=== PATIENT | female | born 1955 | race Caucasian/White ===

== ENCOUNTER 2018-04-23 17:48 | Emergency (ER) | payer OTHER ==
[2018-04-23] MEDS ORDERED: SODIUM CHLORIDE 0.9% 1,000 ML IV STA (18:06)
[2018-04-23] MEDS ORDERED: ONDANSETRON 4 MG/2 ML VIAL IVP STA (18:06)
[2018-04-23] MEDS ORDERED: KETOROLAC 30 MG/ML 1 ML VIAL IVP STA (18:06)
--- NOTE | 2018-04-23 18:18 | ED ---
Abdominal Pain HPI - General Chief Complaint: Abdominal Pain Stated Complaint: blood in urine Time Seen by Provider: 04/23/18 17:59 Source: patient Mode of arrival: ambulatory Limitations: no limitations - History of Present Illness Initial Comments: 62-year-old female patient presents to the emergency department today for evaluation of right flank pain, generalized abdominal pain, and hematuria. Patient states that approximately 10 days ago she started to notice bright red blood in her urine. States that she did follow up with her primary care physician and was informed that she had a UTI with hematuria was given a prescription for Cipro. Patient states that she has taken 9 days worth of the Cipro but her symptoms seem to be worsening. Patient states that she has no appetite, the pain in her flank is worsening, and her urine is becoming darker. States that the pain in her flank is a dull ache. She denies any fevers or chills with this. States that she just feels generally unwell and sick. She denies any constipation or diarrhea. Denies any history of similar symptoms. Patient states that she has had a kidney stone in the past however it was a long time ago and shows remember what it felt like. Patient denies any recent rash, shortness breath, cough, congestion, chest pain, numbness, tingling, dizziness, weakness, headache, visual changes, or any other complaints. - Related Data Home Medications Medication Instructions Recorded Confirmed Atorvastatin [Lipitor] 40 mg PO HS 04/23/18 04/23/18 Citalopram Hydrobromide [CeleXA] 40 mg PO DAILY 04/23/18 04/23/18 Clopidogrel [Plavix] 75 mg PO DAILY 04/23/18 04/23/18 DULoxetine HCL [Cymbalta] 30 mg PO BID 04/23/18 04/23/18 Losartan Potassium [Cozaar] 100 mg PO HS 04/23/18 04/23/18 Nadolol [Corgard] 20 mg PO DAILY 04/23/18 04/23/18 Omeprazole 40 mg PO DAILY 04/23/18 04/23/18 Ranitidine HCl [Zantac] 150 mg PO BID 04/23/18 04/23/18 amLODIPine [Norvasc] 5 mg PO DAILY 04/23/18 04/23/18 traZODone HCL [Desyrel] 200 mg PO HS 04/23/18 04/23/18 Previous Rx's Medication Instructions Recorded Ibuprofen [Motrin] 600 mg PO Q8HR PRN #30 tab 04/23/18 Tamsulosin HCl [Flomax] 0.4 mg PO DAILY #7 cap 04/23/18 Allergies Allergy/AdvReac Type Severity Reaction Status Date / Time prochlorperazine AdvReac Dyspnea Verified 04/23/18 18:17 [From Compazine] Review of Systems ROS Statement: Those systems with pertinent positive or pertinent negative responses have been documented in the HPI. ROS Other: All systems not noted in ROS Statement are negative. Past Medical History Past Medical History: CVA/TIA, Fibromyalgia, Hyperlipidemia, Hypertension Additional Past Medical History / Comment(s): Chronic pain History of Any Multi-Drug Resistant Organisms: None Reported Past Surgical History: Adenoidectomy, Appendectomy, Breast Surgery, Cholecystectomy, Hysterectomy, Orthopedic Surgery, Tonsillectomy, Tubal Ligation Past Psychological History: No Psychological Hx Reported Smoking Status: Current every day smoker Past Alcohol Use History: Occasional Past Drug Use History: Marijuana General Exam Limitations: no limitations General appearance: alert, in no apparent distress, other (This is a well- developed, well-nourished adult female patient in no acute distress. Vital signs upon presentation are temperature 98.1F, pulse 96, respirations 18, blood pressure 122/88, pulse ox 98% on room air.) Eye exam: Present: normal appearance, PERRL, EOMI. Absent: scleral icterus, conjunctival injection, periorbital swelling ENT exam: Present: normal exam, normal oropharynx, mucous membranes moist Respiratory exam: Present: normal lung sounds bilaterally. Absent: respiratory distress, wheezes, rales, rhonchi, stridor Cardiovascular Exam: Present: regular rate, normal rhythm, normal heart sounds. Absent: systolic murmur, diastolic murmur, rubs, gallop, clicks GI/Abdominal exam: Present: soft, tenderness (Midepigastric, right upper quadrant tenderness. Left lower quadrant tenderness.), normal bowel sounds. Absent: distended, guarding, rebound, rigid, mass Back exam: Present: normal inspection, CVA tenderness (R). Absent: CVA tenderness (L) Neurological exam: Present: alert, oriented X3, CN II-XII intact Psychiatric exam: Present: normal affect, normal mood Skin exam: Present: warm, dry, intact, normal color. Absent: rash Course Vital Signs 04/23/18 04/23/18 17:54 18:54 Temperature 98.1 F Pulse Rate 96 88 Respiratory 18 16 Rate Blood Pressure 122/88 122/58 O2 Sat by Pulse 98 98 Oximetry Medical Decision Making - Medical Decision Making 62-year-old female patient presents to the emergency department today for evaluation of hematuria, right-sided abdominal pain, and flank pain. Physical examination did reveal some mild right lower quadrant abdominal tenderness and some right CVA tenderness. Labs reviewed, did reveal potassium of 2.8, greater than 182 red blood cells in the urine. CT of the abdomen and pelvis was obtained with contrast as patient's symptoms did not coincide with kidney stone. This scan did show did show a 3 mm calculus in the left proximal ureter without hydronephrosis or hydroureter. There is no findings to account for patient's pain in the right abdomen and flank. Did discuss findings and results with the patient. We did replace her potassium here with IV and by mouth. She'll be treated for kidney stone with Flomax and ibuprofen. She is instructed to follow-up with urologist for further evaluation of the stone and that hematuria. Return parameters were discussed in detail. She verbalizes understanding and agrees with this plan. - Lab Data Result diagrams: 04/23/18 18:10 04/23/18 18:10 Lab Results 04/23/18 04/23/18 04/23/18 Range/Units 18:10 18:10 18:10 WBC 6.8 (3.8-10.6) k/uL RBC 4.23 (3.80-5.40) m/uL Hgb 13.8 (11.4-16.0) gm/dL Hct 38.9 (34.0-46.0) % MCV 91.8 (80.0-100.0) fL MCH 32.5 (25.0-35.0) pg MCHC 35.4 (31.0-37.0) g/dL RDW 13.3 (11.5-15.5) % Plt Count 366 (150-450) k/uL Neutrophils % 55 % Lymphocytes % 34 % Monocytes % 6 % Eosinophils % 2 % Basophils % 1 % Neutrophils # 3.7 (1.3-7.7) k/uL Lymphocytes # 2.3 (1.0-4.8) k/uL Monocytes # 0.4 (0-1.0) k/uL Eosinophils # 0.2 (0-0.7) k/uL Basophils # 0.1 (0-0.2) k/uL PT (9.0-12.0) sec INR (<1.2) APTT (22.0-30.0) sec Sodium 143 (137-145) mmol/L Potassium 2.8 L* (3.5-5.1) mmol/L Chloride 103 (98-107) mmol/L Carbon Dioxide 29 (22-30) mmol/L Anion Gap 11 mmol/L BUN 12 (7-17) mg/dL Creatinine 0.80 (0.52-1.04) mg/dL Est GFR (CKD-EPI)AfAm >90 (>60 ml/min/1.73 sqM) Est GFR (CKD-EPI)NonAf 78 (>60 ml/min/1.73 sqM) Glucose 90 (74-99) mg/dL Plasma Lactic Acid Ken 0.6 L (0.7-2.0) mmol/L Calcium 9.2 (8.4-10.2) mg/dL Total Bilirubin 0.3 (0.2-1.3) mg/dL AST 19 (14-36) U/L ALT 31 (9-52) U/L Alkaline Phosphatase 72 (38-126) U/L Total Protein 6.1 L (6.3-8.2) g/dL Albumin 3.9 (3.5-5.0) g/dL Amylase 45 (30-110) U/L Lipase 66 (23-300) U/L Urine Color Urine Appearance (Clear) Urine pH (5.0-8.0) Ur Specific Henderson (1.001-1.035) Urine Protein (Negative) Urine Glucose (UA) (Negative) Urine Ketones (Negative) Urine Blood (Negative) Urine Nitrite (Negative) Urine Bilirubin (Negative) Urine Urobilinogen (<2.0) mg/dL Ur Leukocyte Esterase (Negative) Urine RBC (0-5) /hpf Urine WBC (0-5) /hpf Ur Squamous Epith Cells (0-4) /hpf Urine Mucus (None) /hpf 04/23/18 04/23/18 Range/Units 18:10 18:10 WBC (3.8-10.6) k/uL RBC (3.80-5.40) m/uL Hgb (11.4-16.0) gm/dL Hct (34.0-46.0) % MCV (80.0-100.0) fL MCH (25.0-35.0) pg MCHC (31.0-37.0) g/dL RDW (11.5-15.5) % Plt Count (150-450) k/uL Neutrophils % % Lymphocytes % % Monocytes % % Eosinophils % % Basophils % % Neutrophils # (1.3-7.7) k/uL Lymphocytes # (1.0-4.8) k/uL Monocytes # (0-1.0) k/uL Eosinophils # (0-0.7) k/uL Basophils # (0-0.2) k/uL PT 10.3 (9.0-12.0) sec INR 1.1 (<1.2) APTT 25.5 (22.0-30.0) sec Sodium (137-145) mmol/L Potassium (3.5-5.1) mmol/L Chloride (98-107) mmol/L Carbon Dioxide (22-30) mmol/L Anion Gap mmol/L BUN (7-17) mg/dL Creatinine (0.52-1.04) mg/dL Est GFR (CKD-EPI)AfAm (>60 ml/min/1.73 sqM) Est GFR (CKD-EPI)NonAf (>60 ml/min/1.73 sqM) Glucose (74-99) mg/dL Plasma Lactic Acid Ken (0.7-2.0) mmol/L Calcium (8.4-10.2) mg/dL Total Bilirubin (0.2-1.3) mg/dL AST (14-36) U/L ALT (9-52) U/L Alkaline Phosphatase (38-126) U/L Total Protein (6.3-8.2) g/dL Albumin (3.5-5.0) g/dL Amylase (30-110) U/L Lipase (23-300) U/L Urine Color Light Red Urine Appearance Cloudy H (Clear) Urine pH 6.0 (5.0-8.0) Ur Specific Henderson 1.016 (1.001-1.035) Urine Protein 1+ H (Negative) Urine Glucose (UA) Negative (Negative) Urine Ketones Trace H (Negative) Urine Blood Large H (Negative) Urine Nitrite Negative (Negative) Urine Bilirubin Negative (Negative) Urine Urobilinogen <2.0 (<2.0) mg/dL Ur Leukocyte Esterase Moderate H (Negative) Urine RBC >182 H (0-5) /hpf Urine WBC 36 H (0-5) /hpf Ur Squamous Epith Cells 1 (0-4) /hpf Urine Mucus Few H (None) /hpf - Radiology Data Radiology results: report reviewed, image reviewed CT of the abdomen and pelvis with contrast was obtained. Report was reviewed in its entirety. Impression by Dr. Keene shows low to intermediate density masses in the left kidney or probably cysts and should be confirmed by ultrasound. Small hiatal hernia. No sign of acute abdomen and pelvis. I do not see a cause for right-sided abdominal pain. There was an addendum made to noted 3 mm calculus in the left proximal ureter with no evidence of hydronephrosis or hydroureter. Disposition Clinical Impression: Kidney stone on left side, Abdominal pain, Hypokalemia Disposition: HOME SELF-CARE Condition: Good Instructions: Kidney Stones (ED), Hypokalemia (ED), Abdominal Pain (ED) Additional Instructions: Take medications as directed. Follow-up with your primary care physician for recheck and repeat lab testing specifically potassium. Up with urology for further evaluation of kidney stone, flank pain, and hematuria. Return here immediately for any new, worsening, or concerning symptoms. Prescriptions: Ibuprofen [Motrin] 600 mg PO Q8HR PRN #30 tab PRN Reason: Pain Tamsulosin HCl [Flomax] 0.4 mg PO DAILY #7 cap Is patient prescribed a controlled substance at d/c from ED?: No Referrals: None,Stated [Primary Care Provider] - 1-2 days Saul Peck MD [STAFF PHYSICIAN] - 1-2 days Time of Disposition: 20:36
[2018-04-23 18:42] LABS: Basophils # (A) 0.1 k/uL (0-0.2); Basophils % (A) 1 %; Eosinophils # (A) 0.2 k/uL (0-0.7); Eosinophils % (A) 2 %; HCT 38.9 % (34.0-46.0); HGB 13.8 gm/dL (11.4-16.0); Lymphocytes # (A) 2.3 k/uL (1.0-4.8); Lymphocytes % (A) 34 %; MCH 32.5 pg (25.0-35.0); MCHC 35.4 g/dL (31.0-37.0); MCV 91.8 fL (80.0-100.0); Mean Platelet Volume 6.5; Monocytes # (A) 0.4 k/uL (0-1.0); Monocytes % (A) 6 %; Neutrophils # (A) 3.7 k/uL (1.3-7.7); Neutrophils % (A) 55 %; Platelet Count 366 k/uL (150-450); RBC 4.23 m/uL (3.80-5.40); RDW 13.3 % (11.5-15.5); WBC 6.8 k/uL (3.8-10.6)
[2018-04-23 18:47] LABS: ALT 31 U/L (9-52); AST 19 U/L (14-36); Albumin 3.9 g/dL (3.5-5.0); Alkaline Phosphatase 72 U/L (38-126); Amylase 45 U/L (30-110); Anion Gap 11 mmol/L; Blood Urea Nitrogen 12 mg/dL (7-17); Calcium 9.2 mg/dL (8.4-10.2); Carbon Dioxide 29 mmol/L (22-30); Chloride 103 mmol/L (98-107); Glucose 90 mg/dL (74-99); INR 1.1 (<1.2); Lipase 66 U/L (23-300); Partial Thromboplastin Time 25.5 sec (22.0-30.0); Prothrombin Time 10.3 sec (9.0-12.0); Sodium 143 mmol/L (137-145); Total Bilirubin 0.3 mg/dL (0.2-1.3); Total Protein 6.1 g/dL (6.3-8.2)
[2018-04-23 18:51] LABS: Appearance,Urine Cloudy (Clear); Bilirubin,Urine Negative (Negative); Blood,Urine Large (Negative); Color,Urine Light Red; Glucose,Urine (UA) Negative (Negative); Ketones,Urine Trace (Negative); Leukocyte Esterase,Urine Moderate (Negative); Mucus,Urine Few /hpf; Nitrite,Urine Negative (Negative); Protein,Urine 1+ (Negative); RBC,Urine >182 /hpf (0-5); Specific Gravity,Urine 1.016 (1.001-1.035); Squamous Epithelial Cell,Urine 1 /hpf (0-4); Urobilinogen,Urine <2.0 mg/dL (<2.0); WBC,Urine 36 /hpf (0-5)
[2018-04-23 19:00] LABS: Potassium 2.8 mmol/L (3.5-5.1)
[2018-04-23] MEDS ORDERED: RX INFO: IV CONTRAST WAS GIVEN 1 EACH MISC MISCELLANE PRN (19:18)
[2018-04-23] MEDS ORDERED: POTASSIUM CHLORIDE ER 20 MEQ TAB.ER PO STA (19:19)
[2018-04-23] MEDS ORDERED: POTASSIUM CHLORIDE 10 MEQ in WATER FOR INJECTION 1 100ML.BAG IVPB STA (19:20)
--- NOTE | 2018-04-23 19:57 | CT ---
EXAMINATION TYPE: CT abdomen pelvis w con DATE OF EXAM: 04/23/2018 COMPARISON: NONE HISTORY: Right sided abdominal and flank pain x 1 1/[address] DLP: 400.3 mGycm Automated exposure control for dose reduction was used. TECHNIQUE: Helical acquisition of images was performed from the lung bases through the pelvis. CONTRAST: Performed without Oral Contrast and with IV Contrast, patient injected with 100 mL of Isovue 300. FINDINGS: Lung bases are clear of consolidation. There is mild subsegmental atelectasis at the left lung base. There are small hiatal hernia. There is no pericardial effusion. There is no pleural effusion. Liver spleen pancreas gallbladder appear normal. Bile ducts are not dilated. There is no adrenal mass. There is a low density rounded area on the upper pole left kidney. This karan sures 2 cm in diameter. There is a 1 cm cortical cyst on the posterior left kidney. There is no hydro nephrosis. Ureters are not dilated. There is no retroperitoneal adenopathy. Bladder distends smoothly . There is no pelvic mass. I see no intestinal wall thickening. There are no dilated loops. The lumba r vertebra have normal alignment. I see no bony destructive process. Appendix is not seen. There is n o sign of appendicitis. IMPRESSION: LOW TO INTERMEDIATE DENSITY MASSES ON THE LEFT KIDNEY ARE PROBABLY CYSTS AND SHOULD BE CONFIRMED BY U LTRASOUND. SMALL HIATAL HERNIA. NO SIGN OF ACUTE ABDOMEN AND PELVIS. I DO NOT SEE A CAUSE FOR RIGHT-S IDED PAIN.
[2018-04-23 21:47] VITALS: BP 129/78; PULSE 92; RESP 17; TEMP 97.6
== END 2018-04-23 22:04 | disposition home or self-care (01) ==
LOC: EC 17:48
DX: N20.2 Calculus of kidney with calculus of ureter (principal); E87.6 Hypokalemia; M79.7 Fibromyalgia; E78.5 Hyperlipidemia, unspecified; I10 Essential (primary) hypertension; F17.200 Nicotine dependence, unspecified, uncomplicated; Z86.73 Personal history of transient ischemic attack (TIA), and cerebral infarction without residual deficits; Z79.01 Long term (current) use of anticoagulants; Z79.899 Other long term (current) drug therapy; Z88.8 Allergy status to other drugs, medicaments and biological substances; Z90.49 Acquired absence of other specified parts of digestive tract
CPT/HCPCS: 36415; 80053; 82150; 83605; 83690; 85025; 85610; 85730; 81001; 87086; 74177; 99284; 96365; 96366; 96375 ×2; 96361; J2405; J1885; J3480; Q9967

== ENCOUNTER → 2018-05-13 | Outpatient (CLI) | payer SELFPAY ==
--- NOTE | 2018-05-13 15:41 | US ---
EXAMINATION TYPE: US kidneys/renal and bladder DATE OF EXAM: 05/13/2018 COMPARISON: CT 04/23/18 CLINICAL HISTORY: N28.1 KIDNEY CYSTS. EXAM MEASUREMENTS: Right Kidney: 10.3 x 4.9 x 4.5 cm Left Kidney: 9.9 x 4.6 x 4.0 cm Post Void Residual Volume: Bladder insufficiently full to evaluate. mL Right Kidney: wnl Left Kidney: Cysts: Lateral, Mid = 1.1 x 1.1 x 0.9 cm Lateral, Lower = 1.0 x 1.0 x 1.0 cm Bladder: Bladder insufficiently full to evaluate. Bilateral Jets seen: Bladder insufficiently full to evaluate. Normal Post Void Residual: Bladder insufficiently full to evaluate. There is no evidence for hydronephrosis at this point in time. No nephrolithiasis is seen. No reynaldo s are identified. The urinary bladder is anechoic. Bilateral ureteral jets are seen. IMPRESSION: The two previously identified left renal lesions appear cystic on ultrasound and measure up to 1.1 cm within the lateral mid pole of the left kidney. No hydronephrosis or nephrolithiasis.
== END | disposition home or self-care (01) ==
LOC: RADUSWWP 15:00
PROVIDERS: ATTEND Internal Medicine
DX: N28.1 Cyst of kidney, acquired (principal); N28.9 Disorder of kidney and ureter, unspecified
CPT/HCPCS: 76770

== ENCOUNTER → 2018-06-16 | Outpatient (CLI) | payer BC ==
--- NOTE | 2018-06-16 15:06 | CT ---
EXAMINATION TYPE: CT abdomen pelvis w con DATE OF EXAM: 06/16/2018 COMPARISON: 04/23/2018 HISTORY: 62-year-old female Generalized pain with nausea, hematoma of the left kidney TECHNIQUE: Contiguous axial scanning of the abdomen and pelvis following administration of 100 ml Iso conchita 300 IV contrast. Delayed images through the kidneys and coronal/sagittal reconstructions perform ed. CT DLP: 401.9 mGycm Automated exposure control for dose reduction was used. FINDINGS: Heart is upper limits of normal in size without pericardial effusion. There is a small hiatal hernia. Lung bases clear without pleural effusion. Small amount of focal fat along the anterior falciform ligament. No biliary ductal dilatation. Portal venous system is. Gallbladder, adrenal glands, right kidney, spleen, and pancreas show no gross abnormality. Retroaortic left renal vein. Heterogeneous hypodense lesion upper pole left kidney measures 2.4 cm versus 2.1 cm, previously. No s ignificant change in the soft tissue attenuation on delayed images suggesting a complicated cyst. A couple subcentimeter hypodensities mid and lower pole are [address] characterization and likely represent cysts. New in the interval is a large subcapsular hematoma distorting and compressing the left kidney, displ acing it anteriorly and superiorly. The subcapsular collection measures 9.1 cm wide and 9.9 cm cranio caudal. Mild surrounding fat stranding inferiorly probably some mild tracking blood products or edema . There is delayed excretion of contrast from the left kidney. Moderate atherosclerotic calcifications throughout the abdominal aorta and iliac arteries. No dilated small bowel, free fluid, or free air. There is circumferential wall thickening of the cecum and lower ascending colon probably due to nondi stention. No pericolonic inflammatory changes. Bladder urine distended. No abnormal fluid collection in the pelvis or pelvic lymphadenopathy. Uterus surgically absent. Neither ovary is clearly seen. Bones: Degenerative changes at the hips and right SI joint as well as the lower lumbar spine. IMPRESSION: 1. INTERVAL NEW LARGE SUBCAPSULAR FLUID COLLECTION/HEMATOMA INVOLVING THE LEFT KIDNEY MEASURING UP TO 9.9 CM COMPRESSING AND DISTORTING THE RENAL PARENCHYMA. THERE IS DELAYED EXCRETION OF CONTRAST FROM THE LEFT KIDNEY A RESULT. THE PATIENT SHOULD BE MONITORED FOR POTENTIAL PAGE KIDNEY. 2. CIRCUMFERENTIAL WALL THICKENING OF THE CECUM AND LOWER ASCENDING COLON PROBABLY DUE TO NONDISTENTI ON. CORRELATE FOR ANY SYMPTOMS OF COLITIS. 3. SOFT TISSUE DENSITY LESION UPPER POLE LEFT KIDNEY IS STABLE TO MINIMALLY LARGER AT 2.4 CM VERSUS 2 .1 CM, PREVIOUSLY. DESPITE THE SOFT TISSUE ATTENUATION, THERE IS NO CHANGE IN ENHANCEMENT ON THE DIETER YED KIDNEY IMAGES SUGGESTING A COMPLICATED CYST RATHER THAN A SOLID MASS.
== END | disposition home or self-care (01) ==
LOC: RADCTMAIN 11:53
PROVIDERS: ATTEND Internal Medicine
DX: S37.022A Major contusion of left kidney, initial encounter (principal); N28.9 Disorder of kidney and ureter, unspecified; K63.89 Other specified diseases of intestine
CPT/HCPCS: 74177; Q9967

== ENCOUNTER → 2018-07-20 | Outpatient (CLI) | payer BC ==
--- NOTE | 2018-07-20 16:37 | CT ---
EXAMINATION TYPE: CT abdomen wo/w con DATE OF EXAM: 07/20/2018 COMPARISON: 06/16/2018 INDICATION: Left side kidney neoplasm, loss of appetite and abdominal discomfort. DLP: 454.8 mGycm, Automated exposure control for dose reduction was used. CONTRAST: 100ml mL of Isovue M300. Study performed with Oral Contrast TECHNIQUE: Axial images were obtained from above the diaphragm to the pubic rami in the axial plane a t 5 mm thick sections. Reconstructed images are reviewed on the computer in the coronal plane. FINDINGS: Limited CT sections are obtained the lung bases. There is a punctate nodule within the periphery of the right lateral lung measuring 0.4 cm. Series 4 image 1. This may have been present on the comparis on study be smaller. Small hiatal hernia is present. CT ABDOMEN: Liver: Normal Spleen: Normal Pancreas: Normal Adrenal glands: The adrenal glands are normal. Gallbladder: Decompressed Kidneys: Previous lower density structure on the inferior lateral left kidney currently measures 6.2 cm which is less than a 9.1 cm previous. This has a Hounsfield unit measurement of 20. Punctate calcification without obstruction is in the mid left kidney measures 0.2 cm. However appears to be a complex cyst is at the superior pole left kidney may have internal septations and is estimat ed at 1.9 cm which is smaller than the comparison.. No hydronephrosis is present. Delayed images were obtained through the kidneys, which remain unrem arkable. Aorta: Vascular calcification is within the aorta. Inferior vena cava: Normal. CT PELVIS: Loops of bowel within the abdomen and pelvis are normal. There are loops of bowel which are incom pletely distended or lack oral contrast limiting their evaluation. Fecal debris appears to be in the hepatic flexure. IMPRESSIONS: 1. Diminished size of a previous inferior left renal suspected hematoma. 2. Punctate nonobstructing left mid pole renal stone. 3. Stable complex cyst superior posterior left kidney
== END | disposition home or self-care (01) ==
LOC: RADCTMAIN 14:28
PROVIDERS: ATTEND Urology
DX: N20.0 Calculus of kidney (principal); N28.1 Cyst of kidney, acquired
CPT/HCPCS: 74170; Q9967

== ENCOUNTER 2018-07-28 08:44 | Day surgery (SDC) | payer BC ==
[2018-07-28 09:17] VITALS: RESP 18; TEMP 97.1
[2018-07-28] MEDS ORDERED: DIAZEPAM 5 MG TAB PO STA (09:51)
[2018-07-28 10:40] LABS: Mean Platelet Volume 6.6; Platelet Count 448 k/uL (150-450)
[2018-07-28 10:45] LABS: INR 1.1 (<1.2); Prothrombin Time 10.3 sec (9.0-12.0)
[2018-07-28 12:23] VITALS: BP 94/62; PULSE 60
--- NOTE | 2018-07-28 14:03 | US ---
Perinephric fluid aspiration and core biopsy HISTORY: Perinephric hematoma Maximal barrier technique was utilized. Ultrasound was used to sterile technique. The skin overlying a suitable path to the abnormalities localized with ultrasound and the overlying skin prepped and vania ped. Lidocaine used for local anesthesia. A 17-gauge guide was advanced under ultrasound guidance int o the perinephric fluid and aspirated old blood was performed, approximately 20 cc. Core biopsy was p erformed with an 18-gauge needle and submitted formalin to pathology. Following the procedure hemosta sis achieved. No immediate complication. Patient remained in stable condition. IMPRESSION: Status post perinephric hematoma aspiration, ultrasound-guided core biopsy. This procedur e performed by the undersigned. Pathology is pending.
--- NOTE | 2018-07-28 14:06 | US ---
Core biopsy perinephric fluid collection CT dictated report ultrasound renal cyst aspiration same date
== END 2018-07-28 12:00 | disposition home or self-care (01) ==
LOC: RADPROMAIN 08:44
PROVIDERS: ATTEND Urology
DX: S37.012A Minor contusion of left kidney, initial encounter (principal)
CPT/HCPCS: 36415; 50200; 50390; 76942; 85049; 85610; 87070; 87205; 88173; 88305

== ENCOUNTER → 2018-11-03 | Outpatient (CLI) | payer BC ==
--- NOTE | 2018-11-03 15:25 | US ---
EXAMINATION TYPE: US kidneys/renal and bladder DATE OF EXAM: 11/03/2018 COMPARISON: CT 07/20/2018, ultrasound 07/28/2018 CLINICAL HISTORY: D41.02 uncertain behavior of left kidney. Hx of left renal lesion. Patient states it was full of blood and had it drained. Left side discomfort. EXAM MEASUREMENTS: Right Kidney: 9.2 x 4.5 x 4.0 cm Left Kidney: 7.8 x 3.3 x 4.0 cm Right Kidney: wnl Left Kidney: Lateral hypoechoic lesion - 3.6 x 3.0 x 2.8 cm., Decreased compared to prior when it karan sured 6.9 x 4 cm x 6 cm. Hyperechoic lateral lesion in mid/lower pole = 1.0 x 1.0 x 1.1 cm Bladder: Mildly distended, wnl as visualized Bilateral Jets not seen Cortical medullary differentiation maintained bilaterally. Bladder is not distended. IMPRESSION: There is decrease in size in the lesion that has been aspirated in the interval. Small hyperechoic fo cus is present immediately adjacent to the larger lesion which is indeterminate.
== END ==
LOC: RADUSWWP 11:54
PROVIDERS: ATTEND Urology
DX: D41.02 Neoplasm of uncertain behavior of left kidney (principal)
CPT/HCPCS: 76770

== ENCOUNTER → 2019-01-05 | Outpatient (CLI) | payer BC ==
--- NOTE | 2019-01-09 19:00 | BMR ---
EXAMINATION TYPE: MR breast BILAT wo/w con DATE OF EXAM: 01/05/2019 COMPARISON: None HISTORY: Personal history of breast cancer. Bilateral mastectomy with reconstruction. Patient has a h istory of right upper outer quadrant breast carcinoma. TECHNIQUE: A series of fat and water weighted images in the long and short axis views of both breasts are obtained in conjunction with dynamic contrast MRI with subtraction technique. The patient was i njected with 5.5 mL intravenous Gadavist gadolinium contrast. Three-dimensional and additional post processing imaging is created on independent workstation and reviewed during official interpretation of this study. FINDINGS: The patient is status post bilateral mastectomy with reconstruction. There are bilateral prepectoral saline implants present. Susceptibility artifact is seen surrounding the bilateral breast implants from postsurgical change. There are few nonenlarged left axillary lymph nodes identified such as a 5 mm short axis lymph node o n T1 axial nonfat sat series 601 image 72. No suspicious internal mammary or axillary adenopathy is s een. No intramammary suspicious adenopathy is noted. No suspicious mass or nodule mass enhancement is seen bilaterally. No skin thickening is seen. IMPRESSION: BI-RADS 1-No MRI evidence of malignancy. Annual surveillance with breast MRI should be considered.
== END | disposition home or self-care (01) ==
LOC: RADMRIMAIN 11:06
PROVIDERS: ATTEND Internal Medicine
DX: C50.411 Malignant neoplasm of upper-outer quadrant of right female breast (principal)
CPT/HCPCS: 82565; 36415; 77049; C8937; A9585

== ENCOUNTER → 2019-06-09 | Outpatient (CLI) | payer MEDICARE, OTHER ==
--- NOTE | 2019-06-09 13:50 | CT ---
EXAMINATION TYPE: CT abdomen wo/w con DATE OF EXAM: 06/09/2019 HISTORY: Neoplasm of uncertain behavior of left kidney CT DLP: 532.0mGycm Automated Exposure Control for Dose Reduction was Utilized. CONTRAST: CT scan of the abdomen is performed with oral and without and with IV Contrast, patient injected with 100 mL of Isovue 300. COMPARISON: CT abdomen July 20, 2018 and older CTs through April 23, 2018 FINDINGS: LUNG BASES: No significant abnormality is appreciated. LIVER/GB: No significant abnormality is appreciated. PANCREAS: No significant abnormality is seen. SPLEEN: No significant abnormality is seen. ADRENALS: No significant abnormality is seen. KIDNEYS: Noncontrast CT shows 2 calculi measuring 3 mm in size upper pole of the left kidney near cor onal image 52. No right-sided nephrolithiasis. There are subcentimeter hyperdense focus periphery rig ht kidney on axial image 28 favoring proteinaceous cyst coronal image 60. Dynamic postcontrast images show symmetric cortical medullary uptake and excretion without hydronephrosis seen bilaterally. Ther e are stable 1.3 cm low dense lesion posteriorly upper pole left kidney favoring simple cyst. Continu ed resolution of peripheral posterior fluid collection with some minimal residual subcapsular fluid s een best on axial image 28 series 6. BOWEL: Oral contrast does not reach colonic level. There is mild wall thickening throughout the visua lized colon. A mild colitis should be excluded clinically. LYMPH NODES: No greater than 1cm abdominal lymph nodes are appreciated. OSSEOUS STRUCTURES: Moderate to severe disc space narrowing L5-S1 level. Facet arthropathy lower lumb ar levels. OTHER: Moderate mixed plaque in the aorta extends into iliac branch vessels. Some ectasia is seen wit hout greater than 3 cm aneurysmal change. IMPRESSION: Near complete resolution of left-sided perirenal hematoma. Stable upper pole left renal l esion from prior studies. No new suspicious mass or adenopathy. Suspect new mild diffuse colitis, cor relate clinically.
== END | disposition home or self-care (01) ==
LOC: RADCTMAIN 10:22
PROVIDERS: ATTEND Urology
DX: D41.02 Neoplasm of uncertain behavior of left kidney (principal); R31.0 Gross hematuria
CPT/HCPCS: 82565; 84520; 74170; 36415; Q9967

== ENCOUNTER → 2020-06-14 | Outpatient (CLI) | payer MEDICARE, OTHER | END | disposition home or self-care (01) | LOC: LABWHC1 08:20 | PROVIDERS: ATTEND Internal Medicine | DX: Z20.828 Contact with and (suspected) exposure to other viral communicable diseases (principal) | CPT/HCPCS: U0003; C9803 ==

== ENCOUNTER → 2020-10-13 | Outpatient (CLI) | payer MEDICARE, OTHER ==
--- NOTE | 2020-10-16 13:25 | BMR ---
EXAMINATION TYPE: MR breast BILAT wo/w con DATE OF EXAM: 10/13/2020 COMPARISON: Prior breast MRI 01/05/2019 HISTORY: Breast cancer, C 50.1 TECHNIQUE: A series of fat and water weighted images in the long and short axis views of both breasts are obtained in conjunction with dynamic contrast MRI with subtraction technique. The patient was i njected with 5.5 mL intravenous Gadavist contrast. Three-dimensional and additional postprocessing imaging is created on independent workstation and reviewed during official interpretation of this [facility]. FINDINGS: Exam is stable. Patient is status post bilateral mastectomy with reconstruction. Bilateral right pectoral saline implants are present. No internal mammary nodes are present. No enlarged axilla ry nodes. No suspicious enhancement bilaterally within the breasts. Exam is stable. IMPRESSION: BI-RADS 1, no MRI evidence of malignancy
== END | disposition home or self-care (01) ==
LOC: RADMRIMAIN 12:14
PROVIDERS: ATTEND Internal Medicine
DX: C50.411 Malignant neoplasm of upper-outer quadrant of right female breast (principal)
CPT/HCPCS: C8937; C8908; A9585; 77049

== ENCOUNTER 2021-02-04 11:42 | Emergency (ER) | payer MEDICARE, OTHER ==
[2021-02-04 11:56] VITALS: RESP 18; TEMP 97.9
[2021-02-04] MEDS ORDERED: SODIUM CHLORIDE 0.9% 1,000 ML IV STA (12:07)
[2021-02-04] MEDS ORDERED: ONDANSETRON 4 MG/2 ML VIAL IVP STA (12:07)
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
[2021-02-04 12:46] LABS: Basophils # (A) 0.1 k/uL (0-0.2); Basophils % (A) 1 %; Eosinophils # (A) 0.3 k/uL (0-0.7); Eosinophils % (A) 2 %; HCT 40.9 % (34.0-46.0); HGB 13.5 gm/dL (11.4-16.0); Lymphocytes # (A) 2.8 k/uL (1.0-4.8); Lymphocytes % (A) 21 %; MCH 32.5 pg (25.0-35.0); MCV 98.5 fL (80.0-100.0); Mean Platelet Volume 6.7; Monocytes # (A) 0.5 k/uL (0-1.0); Monocytes % (A) 4 %; Neutrophils # (A) 9.5 k/uL (1.3-7.7); Neutrophils % (A) 71 %; Platelet Count 420 k/uL (150-450); RBC 4.15 m/uL (3.80-5.40); RDW 12.5 % (11.5-15.5); WBC 13.3 k/uL (3.8-10.6)
[2021-02-04] MEDS ORDERED: traMADol 50 MG TAB PO STA (13:00)
[2021-02-04 13:01] LABS: Appearance,Urine Cloudy (Clear); Bilirubin,Urine Negative (Negative); Blood,Urine Large (Negative); Color,Urine Yellow; Glucose,Urine (UA) Negative (Negative); Ketones,Urine Negative (Negative); Leukocyte Esterase,Urine Moderate (Negative); Mucus,Urine Occasional /hpf; Nitrite,Urine Negative (Negative); Protein,Urine Trace (Negative); RBC,Urine 38 /hpf (0-5); Specific Gravity,Urine 1.026 (1.001-1.035); Squamous Epithelial Cell,Urine <1 /hpf (0-4); Urobilinogen,Urine <2.0 mg/dL (<2.0); WBC,Urine 5 /hpf (0-5)
[2021-02-04 13:04] LABS: ALT 23 U/L (4-34); AST 35 U/L (14-36); African American GFR (CKD) >90 (>60 ml/min/1.73 sqM); Albumin 4.2 g/dL (3.5-5.0); Alkaline Phosphatase 99 U/L (38-126); Amylase 69 U/L (30-110); Anion Gap 6 mmol/L; Blood Urea Nitrogen 24 mg/dL (7-17); Calcium 9.1 mg/dL (8.4-10.2); Carbon Dioxide 24 mmol/L (22-30); Chloride 108 mmol/L (98-107); Glucose 82 mg/dL (74-99); Lipase 208 U/L (23-300); Non-African American GFR(CKD) >90 (>60 ml/min/1.73 sqM); Potassium 4.8 mmol/L (3.5-5.1); Sodium 138 mmol/L (137-145); Total Bilirubin 0.6 mg/dL (0.2-1.3); Total Protein 6.9 g/dL (6.3-8.2)
--- NOTE | 2021-02-04 14:15 | CT ---
EXAMINATION TYPE: CT abdomen pelvis w con DATE OF EXAM: 02/04/2021 COMPARISON: CT 06/09/2019 HISTORY: Kidney stones CT DLP: 617.7 mGycm Automated exposure control for dose reduction was used. TECHNIQUE: Helical acquisition of images from the lung bases through the pelvis have been completed. CONTRAST: Performed without Oral Contrast and with IV Contrast, patient injected with 100 ml mL of Isovue 300. FINDINGS: LUNG BASES: No significant abnormality is appreciated. AORTA: No significant abnormality is appreciated. LIVER/GB: Focus of low-attenuation within the right lobe, axial image 19 measures 1 cm on axial image #19 and is stable, gallbladder is normal. PANCREAS: No significant abnormality is seen. SPLEEN: No significant abnormality is seen. ADRENALS: No significant abnormality is seen. KIDNEYS: Proximal left ureter shows a calculus measuring approximately 4 to 5 mm. Left kidney shows a distorted shape as on prior exam, there is a retroaortic left renal vein REPRODUCTIVE ORGANS: Not seen BOWEL: An annular type lesion is present within the sigmoid colon, axial image #61, coronal image #4 3, bowel surveillance has not been performed then it should BE considered, no evident bowel obstructi on. FREE AIR: No Free Air visible. ASCITES: None visible. PELVIC ADENOPATHY: None visualized. RETROPERITONEAL ADENOPATHY: No Retroperitoneal Adenopathy visible. URINARY BLADDER: No significant abnormality is seen. OSSEOUS STRUCTURES: Degenerative disc change in the visualized lumbar spine. IMPRESSION: PROXIMAL LEFT URETERAL CALCULUS. QUESTION ANNULAR LESION IN THE SIGMOID COLON. POSTOP CHANGES
[2021-02-04] MEDS ORDERED: KETOROLAC 15 MG/ML 1 ML VIAL IVP STA (14:51)
[2021-02-04] MEDS ORDERED: KETOROLAC 15 MG/ML 1 ML VIAL ONE (14:52)
[2021-02-04] MEDS ORDERED: HYDROcodone/APAP 5-325MG 1 EACH TAB PO STA (14:55)
[2021-02-04 15:48] VITALS: BP 120/82; PULSE 57
[2021-02-04] MEDS ORDERED: ACET/COD 300 MG/30 MG STARTER PACK 6 TAB BTL PO STA (15:53)
== END 2021-02-04 15:56 | disposition home or self-care (01) ==
LOC: EC 11:42
DX: N20.2 Calculus of kidney with calculus of ureter (principal); E78.5 Hyperlipidemia, unspecified; M79.7 Fibromyalgia; I10 Essential (primary) hypertension; K63.9 Disease of intestine, unspecified; G89.29 Other chronic pain; Z86.73 Personal history of transient ischemic attack (TIA), and cerebral infarction without residual deficits; Z85.3 Personal history of malignant neoplasm of breast; Z90.49 Acquired absence of other specified parts of digestive tract; Z90.13 Acquired absence of bilateral breasts and nipples; Z90.710 Acquired absence of both cervix and uterus; Z79.02 Long term (current) use of antithrombotics/antiplatelets; Z79.899 Other long term (current) drug therapy; Z88.8 Allergy status to other drugs, medicaments and biological substances
CPT/HCPCS: 36415; 93005; 80053; 82150; 83690; 85025; 81001; 74177; J2405; J1885; Q9967; 96361; 96374; 96375; 99284

== ENCOUNTER 2021-02-22 10:34 | Emergency (ER) | payer MEDICARE ==
[2021-02-22 10:44] VITALS: BP 144/83; PULSE 68; RESP 18; TEMP 97.8
[2021-02-22] MEDS ORDERED: KETOROLAC 15 MG/ML 1 ML VIAL IVP STA (11:29)
[2021-02-22 12:36] LABS: INR 0.9 (<1.2); Partial Thromboplastin Time 26.4 sec (22.0-30.0); Prothrombin Time 10.1 sec (9.0-12.0)
[2021-02-22 12:45] LABS: ALT 15 U/L (4-34); AST 31 U/L (14-36); African American GFR (CKD) >90 (>60 ml/min/1.73 sqM); Albumin 4.3 g/dL (3.5-5.0); Alkaline Phosphatase 101 U/L (38-126); Anion Gap 7 mmol/L; Blood Urea Nitrogen 17 mg/dL (7-17); Calcium 9.7 mg/dL (8.4-10.2); Carbon Dioxide 25 mmol/L (22-30); Chloride 106 mmol/L (98-107); Creatine Kinase 38 U/L (30-135); Glucose 95 mg/dL (74-99); Lipase 138 U/L (23-300); Non-African American GFR(CKD) >90 (>60 ml/min/1.73 sqM); Sodium 138 mmol/L (137-145); Total Bilirubin 0.5 mg/dL (0.2-1.3); Total Protein 7.1 g/dL (6.3-8.2)
[2021-02-22 12:55] LABS: Potassium 4.8 mmol/L (3.5-5.1)
[2021-02-22 13:17] LABS: Basophils # (A) 0.1 k/uL (0-0.2); Basophils % (A) 1 %; Eosinophils # (A) 0.1 k/uL (0-0.7); Eosinophils % (A) 1 %; HCT 42.8 % (34.0-46.0); HGB 14.3 gm/dL (11.4-16.0); Lymphocytes # (A) 2.8 k/uL (1.0-4.8); Lymphocytes % (A) 28 %; MCH 32.6 pg (25.0-35.0); MCHC 33.4 g/dL (31.0-37.0); MCV 97.6 fL (80.0-100.0); Mean Platelet Volume 7.2; Monocytes # (A) 0.5 k/uL (0-1.0); Monocytes % (A) 5 %; Neutrophils # (A) 6.4 k/uL (1.3-7.7); Neutrophils % (A) 63 %; Platelet Count 366 k/uL (150-450); RBC 4.38 m/uL (3.80-5.40); WBC 10.1 k/uL (3.8-10.6)
[2021-02-22 13:17] LABS: Appearance,Urine Cloudy (Clear); Bacteria,Urine Rare /hpf; Bilirubin,Urine Negative (Negative); Blood,Urine Large (Negative); Calcium Oxalate Crystals,Urine Occasional /hpf; Color,Urine Yellow; Glucose,Urine (UA) Negative (Negative); Ketones,Urine Negative (Negative); Leukocyte Esterase,Urine Large (Negative); Mucus,Urine Many /hpf; Nitrite,Urine Negative (Negative); PH, Urine 5.5 (5.0-8.0); Protein,Urine Trace (Negative); RBC,Urine 8 /hpf (0-5); Specific Gravity,Urine 1.022 (1.001-1.035); Squamous Epithelial Cell,Urine 1 /hpf (0-4); WBC,Urine 33 /hpf (0-5)
--- NOTE | 2021-02-22 14:00 | CT ---
EXAMINATION TYPE: CT abdomen pelvis w con DATE OF EXAM: 02/22/2021 COMPARISON: 02/04/2021 INDICATION: Right flank pain with blood in stool and hematuria. DLP: 578.3 mGycm, Automated exposure control for dose reduction was used. CONTRAST: 100 mL of Isovue 300. Study performed without Oral Contrast TECHNIQUE: Axial images were obtained from above the diaphragm to the pubic rami in the axial plane a t 5 mm thick sections. Reconstructed images are reviewed on the computer in the coronal plane. FINDINGS: Limited CT sections are obtained the lung bases. The lung bases are clear. CT ABDOMEN: Liver: Some mild fatty infiltration liver could be considered. Small hepatic cyst may remain present. Spleen: Normal Pancreas: Normal Adrenal glands: The adrenal glands are normal. Gallbladder: Normal Kidneys: No masses are evident. No hydronephrosis is present. There is some mild hydroureter present. Within the distal left ureter is 0.4 cm calcification which inferior comparison study A small corti tenzin renal cyst on the left kidney. Delayed images were obtained through the kidneys, which remain un remarkable. Aorta: Vascular calcification is within the aorta. There is fusiform prominence of the mid abdominal aorta with an AP diameter 2.1 cm. Distal abdominal aorta also has some fusiform prominence measuring 2.1 cm which terminates bifurcation. Inferior vena cava: Normal. CT PELVIS: Loops of bowel within the abdomen and pelvis are normal. Few diverticuli may be present. There are loops of bowel which are incompletely distended or lack oral contrast limiting their evaluation. Appendix: Normal as visualized. Urinary bladder: Normal. Genitourinary structures: Uterus and ovaries are not identified. Osseous structures: No suspicious lytic or sclerotic lesions. IMPRESSIONS: 1. A 0.4 cm distal left ureteral stone has moved from its more mid ureteral location on the prior [facility]. Mild hydroureter remains present. 2. Mild diverticulosis 3. Mild fatty infiltration of the liver. 4. Mild fusiform prominence of the mid and then distal abdominal aorta. AP diameter is 2.1 cm at thes e areas.
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
== END 2021-02-22 15:12 | disposition home or self-care (01) ==
LOC: EC 10:34
DX: R10.9 Unspecified abdominal pain (principal); N20.1 Calculus of ureter; I10 Essential (primary) hypertension; E78.5 Hyperlipidemia, unspecified; M79.7 Fibromyalgia; Z86.73 Personal history of transient ischemic attack (TIA), and cerebral infarction without residual deficits
CPT/HCPCS: 36415; 93005; 80053; 82550; 83605; 83690; 85025; 85610; 85730; 81001; 87086; 74177; 99284; 96374; J1885; Q9967